=== PATIENT | male | born 1960 | race Caucasian/White ===

== ENCOUNTER 2017-06-15 17:12 | Inpatient (IN) | payer OTHER ==
[~2017-06-15] VITALS: Ht 172.7 cm; Wt 66.1 kg
[2017-06-15] MEDS ORDERED: CELEXA 20MG20 MG/TAB PO (17:37)
[2017-06-15 17:53] LABS: BASO # 0.1 (0.0-0.2); BASO % 0.5 % (0.0-2.0); EOS # 0.1 (0.0-0.7); EOS % 0.7 % (0-4.0); GRAN % 71.1 % (42.2-75.2); HEMATOCRIT 46.6 % (42.0-52.0); HEMOGLOBIN 15.1 g/dl (13.5-18.0); LYMPH # 1.9 (1.2-3.4); LYMPH % 19.5 % (20.0-51.0); MEAN CELL VOLUME 91 fl (80.0-100.0); MEAN CORPUSCULAR HEMOGLOBIN 30 pg (27.0-31.0); MEAN CORPUSCULAR HGB CONC 32 g/dl (33.0-37.0); MEAN PLATELET VOLUME 11.1 fl (7.4-10.4); MONO # 0.8 (0.1-0.6); PLATELET COUNT 201 K/mm3 (130-400); RED BLOOD COUNT 5.12 M/mm3 (4.20-5.60); WHITE BLOOD COUNT 9.9 K/mm3 (4.8-10.8)
[2017-06-15 17:57] LABS: ADJUSTED CALCIUM 9.1 mg/dL (8.4-10.2); ALBUMIN 4.3 gm/dL (3.5-5.0); BILIRUBIN,TOTAL 1.4 mg/dL (0.0-1.0); CALCIUM 9.3 mg/dL (8.4-10.2); CREATININE, serum 1.02 mg/dL (0.66-1.25); POTASSIUM 3.8 mmol/L (3.4-5.0); TOTAL PROTEIN 7.1 gm/dL (6.4-8.2)
[2017-06-15 18:09] LABS: INR 1.1 (0.8-3.0); PROTHROMBIN TIME 13.1 SECONDS (9.7-12.8); TROPONIN-I 0.027 ng/mL (0.000-0.034)
[2017-06-15 18:12] LABS: PARTIAL THROMBOPLASTIN TIME 31.7 SECONDS (26.0-37.0)
[2017-06-15 22:29] VITALS: BP 139/106; PULSE 97; TEMP 98
[2017-06-15 23:32] LABS: MAGNESIUM 1.9 mg/dL (1.6-2.3)
[2017-06-15 23:59] LABS: PH 6 (5-8); SQUAMOUS EPITHELIAL None Seen /hpf; URINE APPEARANCE Clear; URINE BACTERIA None Seen /hpf; URINE BILIRUBIN Negative (NEGATIVE); URINE BLOOD Negative (NEGATIVE); URINE COLOR Straw; URINE GLUCOSE Negative (NEGATIVE); URINE KETONE Negative (NEGATIVE); URINE LEUKOCYTE ESTERASE Negative (NEGATIVE); URINE PROTEIN(semi-quant) Negative (NEGATIVE); URINE RBC 0-2 /hpf; URINE UROBILINOGEN Negative (NEGATIVE); URINE WBC 0-2 /hpf
[2017-06-16] VITALS (19 sets, daily range): BP systolic 119–144; BP diastolic 70–109; PULSE 84–108; TEMP 97.2–98.2
[2017-06-16 00:02] LABS: THYROID STIMULATING HORMONE 1.94 uIU/mL (0.465-4.680)
[2017-06-16 00:15] LABS: COLLECTION METHOD CLEAN CATCH
[2017-06-16 07:07] LABS: CALCIUM 9.3 mg/dL (8.4-10.2); CHOLESTEROL RISK RATIO 4.1; CREATININE, serum 1.06 mg/dL (0.66-1.25); POTASSIUM 4.1 mmol/L (3.4-5.0)
[2017-06-16 07:23] LABS: BASO # 0.1 (0.0-0.2); BASO % 0.7 % (0.0-2.0); EOS # 0.1 (0.0-0.7); EOS % 1.8 % (0-4.0); GRAN # 4.3 (1.4-6.5); HEMATOCRIT 47.7 % (42.0-52.0); HEMOGLOBIN 15.4 g/dl (13.5-18.0); LYMPH # 1.7 (1.2-3.4); LYMPH % 25.7 % (20.0-51.0); MEAN CELL VOLUME 91 fl (80.0-100.0); MEAN CORPUSCULAR HEMOGLOBIN 30 pg (27.0-31.0); MEAN CORPUSCULAR HGB CONC 32 g/dl (33.0-37.0); MEAN PLATELET VOLUME 11.1 fl (7.4-10.4); MONO # 0.6 (0.1-0.6); MONO % 8.7 % (1.7-9.3); PLATELET COUNT 206 K/mm3 (130-400); RED BLOOD COUNT 5.22 M/mm3 (4.20-5.60); WHITE BLOOD COUNT 6.8 K/mm3 (4.8-10.8)
[2017-06-16 11:37] LABS: INR 1.2 (0.8-3.0); PROTHROMBIN TIME 14.3 SECONDS (9.7-12.8)
[2017-06-16 11:40] LABS: PARTIAL THROMBOPLASTIN TIME 34.6 SECONDS (26.0-37.0)
[2017-06-17 01:22] VITALS: BP 109/72; PULSE 97; TEMP 98.2
[2017-06-17 05:35] VITALS: BP 129/94; PULSE 101
[2017-06-17 06:57] LABS: BASO # 0.1 (0.0-0.2); BASO % 0.6 % (0.0-2.0); EOS # 0.2 (0.0-0.7); GRAN # 5.7 (1.4-6.5); GRAN % 71.3 % (42.2-75.2); HEMATOCRIT 47.3 % (42.0-52.0); HEMOGLOBIN 15.6 g/dl (13.5-18.0); LYMPH # 1.3 (1.2-3.4); LYMPH % 15.8 % (20.0-51.0); MEAN CELL VOLUME 89 fl (80.0-100.0); MEAN CORPUSCULAR HEMOGLOBIN 29 pg (27.0-31.0); MEAN CORPUSCULAR HGB CONC 33 g/dl (33.0-37.0); MONO # 0.8 (0.1-0.6); MONO % 9.9 % (1.7-9.3); PLATELET COUNT 194 K/mm3 (130-400); RED BLOOD COUNT 5.31 M/mm3 (4.20-5.60)
[2017-06-17 07:05] LABS: CALCIUM 9.2 mg/dL (8.4-10.2); CREATININE, serum 0.93 mg/dL (0.66-1.25); MAGNESIUM 1.9 mg/dL (1.6-2.3); POTASSIUM 3.6 mmol/L (3.4-5.0)
[2017-06-17 07:15] VITALS: BP 131/96; PULSE 106; TEMP 97.4
[2017-06-17 07:36] LABS: HIV 1/2 Antibodies Non-Reactive; HIV-1p24 Antigen Non-Reactive
[2017-06-17 10:00] VITALS: BP 107/76; PULSE 112
[2017-06-17 11:00] VITALS: BP 114/84; PULSE 106; TEMP 97.7
[2017-06-17] MEDS ORDERED: NICODERM C21 MG/PATC TD (13:57)
[2017-06-17] MEDS ORDERED: LANOXIN 0.25M0.25 MG PO (13:58)
[2017-06-17] MEDS ORDERED: COREG 6.256.25 MG/TA PO (13:58)
[2017-06-17] MEDS ORDERED: ASPI325T6 PO (13:58)
[2017-06-17] MEDS ORDERED: ALTACE 5MG5 MG PO (13:58)
[2017-06-17] MEDS ORDERED: LASIX 40MG TABL40 MG PO (14:02)
[2017-06-17] MEDS ORDERED: THIAMINE 1100 MG/TAB PO (14:42)
[2017-06-18 13:08] LABS: ANA SCREEN with REFLEX Negative (Negative)
[2017-06-18 17:10] LABS: SELENIUM-SERUM 116 ng/mL (70-150)
[2017-06-19 10:16] LABS: VITAMIN B1 187 nmol/L (70-180)
== END 2017-06-17 16:05 | disposition home or self-care (01) | DRG 287 ==
LOC: COL.ER 17:12 → MEDICAL 20:41
PROVIDERS: Emergency Medicine; Internal Medicine Cardiovascular Disease; Nurse Practitioner Family
PROC: B2111ZZ Fluoroscopy of Multiple Coronary Arteries using Low Osmolar Contrast (ICD-10-PCS; principal; 2017-06-16)
DX: I11.0 Hypertensive heart disease with heart failure (principal); I50.23 Acute on chronic systolic (congestive) heart failure; I25.10 Atherosclerotic heart disease of native coronary artery without angina pectoris; F17.210 Nicotine dependence, cigarettes, uncomplicated; I42.0 Dilated cardiomyopathy; J44.9 Chronic obstructive pulmonary disease, unspecified
CPT/HCPCS: 99223-AI; 99232-AI; 99238; C1769; J0360; J1160; J1644; J1650; J1940; J2250; J3010; Q9967